=== PATIENT | male | born 1990 | race African-American/Black ===

== ENCOUNTER → 2019-08-11 | Emergency (ER) | payer MEDICAID ==
[~2019-08-11] VITALS: Ht 172.7 cm; Wt 124.3 kg
[~2019-08-11] MED LIST: KETOROLAC TROMETH 60MG/2ML VIAL IM ONE; METOCLOPRAMIDE HCL 5MG/ml INJ 2ml VIAL IM ONE
[2019-08-11 07:43] VITALS: BP 118/70
== END | disposition home or self-care (01) ==
LOC: ER 05:35
DX: S39.012A Strain of muscle, fascia and tendon of lower back, initial encounter (principal); W01.0XXA Fall on same level from slipping, tripping and stumbling without subsequent striking against object, initial encounter; Y93.89 Activity, other specified; Y92.009 Unspecified place in unspecified non-institutional (private) residence as the place of occurrence of the external cause; Y99.8 Other external cause status
CPT/HCPCS: 72128; 72131; 96372; 99285; J1885